=== PATIENT | female | born 1950 | race Caucasian/White ===

== ENCOUNTER → 2017-07-15 | Outpatient (CLI) | payer MEDICARE, OTHER ==
--- NOTE | 2017-07-16 10:33 | MM ---
Reason for exam: screening (asymptomatic). Last mammogram was performed 1 year and 1 month ago. History: Patient history of other cancer. Family history of breast cancer in paternal grandmother. Reductions of both breasts. Physical Findings: A clinical breast exam by your physician is recommended on an annual basis and results should be correlated with mammographic findings. MG 3D Screening Mammo W/Cad Bilateral CC, MLO, and XCCL view(s) were taken. Prior study comparison: June 18, 2016, bilateral MG 3d screening mammo w/cad. June 27, 2015, mammogram, performed at [facility]. Finding #1: There is a 8 mm equal density (isodense), oval mass in the outer quadrant of the left breast seen on XCCL view. Finding #2: There are typically benign calcifications in both breasts. ASSESSMENT: Incomplete: need additional imaging evaluation, BI-RAD 0 RECOMMENDATION: Special view mammogram of the left breast. If lesion persists on supplemental views, image directed ultrasound is recommended. [facility] will attempt to contact patient to return for supplemental views and ultrasound if indicated.
== END | disposition home or self-care (01) ==
LOC: RADMAMWWP 11:14
PROVIDERS: ATTEND Family Medicine
DX: Z12.31 Encounter for screening mammogram for malignant neoplasm of breast (principal)
CPT/HCPCS: 77063; 77067

== ENCOUNTER → 2017-07-29 | Outpatient (CLI) | payer MEDICARE, OTHER ==
--- NOTE | 2017-07-29 11:07 | MM ---
Reason for exam: additional evaluation requested from abnormal screening. Last mammogram was performed less than 1 month ago. History: Patient history of other cancer. Family history of breast cancer in paternal grandmother. Reductions of both breasts. Physical Findings: Nurse did not find any significant physical abnormalities on exam. MG 3D Work Up W/Cad LT ML and spot compression XCCL view(s) were taken of the left breast. Prior study comparison: July 15, 2017, bilateral MG 3d screening mammo w/cad. June 18, 2016, bilateral MG 3d screening mammo w/cad. Nodule persists upper outer quadrant left breast. Ultrasound recommended. 7-8cm from nipple. These results were verbally communicated with the patient and result sheet given to the patient on 07/29/17. ASSESSMENT: Incomplete: need additional imaging evaluation, BI-RAD 0 RECOMMENDATION: Ultrasound of the left breast.
--- NOTE | 2017-07-29 11:09 | USB ---
Reason for exam: additional evaluation requested from abnormal screening. History: Patient history of other cancer. Family history of breast cancer in paternal grandmother. Reductions of both breasts. US Breast Workup Limited LT Left breast ultrasound demonstrates a 0.7 x 0.3 x 0.4cm solid lesion at 4 o'clock. These results were verbally communicated with the patient and result sheet given to the patient on 07/29/17. ASSESSMENT: Suspicious, BI-RAD 4 RECOMMENDATION: Ultrasound core biopsy of the left breast. Called Dr. Padilla with mammographic findings and has scheduled an appointment for the patient for 08/06/17 at 3:[address] Kruse. PRELIMINARY REPORT CALLED AND FAXED TO DR. KRUSE ON 07/29/17.
== END | disposition home or self-care (01) ==
LOC: RADMAMWWP 07:00
PROVIDERS: ATTEND Family Medicine
DX: R92.8 Other abnormal and inconclusive findings on diagnostic imaging of breast (principal)
CPT/HCPCS: 77065; 76642; G0279

== ENCOUNTER → 2017-08-06 | Day surgery (SDC) | payer MEDICARE, OTHER ==
[2017-08-06 07:33] VITALS: RESP 16; BMI 24.4
--- NOTE | 2017-08-06 09:14 | USB ---
EXAMINATION TYPE: US biopsy breast VAD LT, MG diagnostic mammo LT wo CAD DATE OF EXAM: 08/06/2017 CLINICAL HISTORY: Breast mass N63. Abnormal ultrasound and mammogram TECHNIQUE: Ultrasound guided core biopsy of left breast with clip placement and follow-up two-view mammogram. COMPARISON: Left breast mammogram and ultrasound July 29, 2017 and older studies FINDINGS: The procedure of ultrasound guided core biopsy was explained to the patient. Benefits, alternatives, and risks were discussed. An informed consent was then obtained. The patient was placed in supine positioning for imaging and for the procedure. Preprocedure imaging redemonstrates some vague hypoechoic partially shadowing area of 4:00 position left breast zone B. The overlying skin was prepped and draped in usual sterile fashion. Lidocaine buffered with bicarbonate was used as anesthetic into the skin and subcutaneous tissue up to area of concern in the left breast. Under ultrasound guidance, a 12-gauge vacuum assisted biopsy gun device was used to obtain 3 core samples. Following this, a biopsy clip was left in lesion. The patient tolerated the procedure well without any immediate complication. The patient was kept in the radiology department for short stay after the procedure and then discharged home in stable condition. Postprocedure mammogram shows successful deployment of clip was not definitively corresponding to area of original mammogram workup which is less well-seen on today's images. Area of mammogram concern may be similar in appearance to 2014 mammogram in retrospect. IMPRESSION: Successful, uncomplicated ultrasound guided core biopsy of area of concern in the left breast, full pathology results to follow. Low to intermediate index of suspicion noted at time of procedure. Pathology Results: Benign BREAST, LEFT, CORE BIOPSY: BENIGN BREAST WITH FIBROCYSTIC CHANGES INCLUDING PROMINENT STROMAL FIBROSIS. Recommendation Follow up ultrasound of the left breast in 6 months. RITCHIED
[2017-08-06 09:50] VITALS: BP 127/75; PULSE 54; TEMP 97.9
== END ==
LOC: RADUSWWP 07:02
PROVIDERS: ATTEND Surgery
DX: N60.32 Fibrosclerosis of left breast (principal); Z88.0 Allergy status to penicillin
CPT/HCPCS: 88305; 77065; 19083; A4648; J2001

== ENCOUNTER → 2018-01-31 | Outpatient (CLI) | payer MEDICARE, OTHER ==
--- NOTE | 2018-01-31 12:08 | MM ---
Reason for exam: follow-up at short interval from prior study. Last mammogram was performed 6 months ago. History: Patient history of other cancer. Family history of breast cancer in paternal grandmother. Benign US biopsy breast VAD LT of the left breast, August 06, 2017. Reductions of both breasts. Physical Findings: Nurse did not find any significant physical abnormalities on exam. MG 3D Diag Mammo Wo Cad LT CC and MLO view(s) were taken of the left breast. Prior study comparison: August 06, 2017, left breast MG diagnostic mammo LT wo CAD. July 29, 2017, left breast MG 3d work up w/cad LT. There are scattered fibroglandular densities. Finding: There are typically benign calcifications in the left breast. Left biopsy marker noted. These results were verbally communicated with the patient and result sheet given to the patient on 01/31/18. ASSESSMENT: Negative, BI-RAD 1 RECOMMENDATION: Return to routine screening mammogram schedule for both breasts. Back on schedule.
== END | disposition home or self-care (01) ==
LOC: RADMAMWWP 10:25
PROVIDERS: ATTEND Surgery
DX: R92.8 Other abnormal and inconclusive findings on diagnostic imaging of breast (principal)
CPT/HCPCS: 77065; G0279; 77061

== ENCOUNTER → 2019-04-08 | Outpatient (CLI) | payer MEDICARE, OTHER ==
--- NOTE | 2019-04-08 13:25 | MM ---
Reason for exam: additional evaluation requested from prior study. Last mammogram was performed 1 year and 2 months ago. History: Patient history of other cancer. Family history of breast cancer in paternal grandmother at age 55. Benign US biopsy breast VAD LT of the left breast, August 06, 2017. Reductions of both breasts. Physical Findings: Nurse did not find any significant physical abnormalities on exam. MG 3D Diag Mammo W/Cad PEDRO Bilateral CC and MLO view(s) were taken. Prior study comparison: January 31, 2018, left breast MG 3d diag mammo wo cad LT. August 06, 2017, left breast MG diagnostic mammo LT wo CAD. The breast tissue is heterogeneously dense. This may lower the sensitivity of mammography. Previous mammotome biopsy in the left breast. No significant new findings when compared with previous films. These results were verbally communicated with the patient and result sheet given to the patient on 04/08/19. ASSESSMENT: Negative, BI-RAD 1 RECOMMENDATION: Routine screening mammogram of both breasts in 1 year.
== END | disposition home or self-care (01) ==
LOC: RADMAMWWP 12:41
PROVIDERS: ATTEND Family Medicine
DX: R92.8 Other abnormal and inconclusive findings on diagnostic imaging of breast (principal)
CPT/HCPCS: 77066; G0279; 77062

== ENCOUNTER → 2020-06-07 | Outpatient (CLI) | payer MEDICARE, OTHER ==
--- NOTE | 2020-06-08 13:37 | MM ---
Reason for exam: screening (asymptomatic). Last mammogram was performed 1 year and 2 months ago. History: Patient history of other cancer. Family history of breast cancer in paternal grandmother at age 55. Benign US biopsy breast VAD LT of the left breast, August 06, 2017. Reductions of both breasts. Physical Findings: A clinical breast exam by your physician is recommended on an annual basis and results should be correlated with mammographic findings. MG 3D Screening Mammo W/Cad Bilateral CC and MLO view(s) were taken. Prior study comparison: April 08, 2019, bilateral MG 3d diag mammo w/cad PEDRO. January 31, 2018, left breast MG 3d diag mammo wo cad LT. There are scattered fibroglandular densities. Previous mammotome biopsy in the left breast. No significant changes when compared with prior studies. ASSESSMENT: Negative, BI-RAD 1 RECOMMENDATION: Routine screening mammogram of both breasts in 1 year.
== END | disposition home or self-care (01) ==
LOC: RADMAMWWP 14:26
PROVIDERS: ATTEND Family Medicine
DX: Z12.31 Encounter for screening mammogram for malignant neoplasm of breast (principal)
CPT/HCPCS: 77063; 77067

== ENCOUNTER → 2021-02-08 | Outpatient (CLI) | payer MEDICARE, OTHER ==
--- NOTE | 2021-02-14 10:26 | MM ---
Reason for exam: clinical finding. Last mammogram was performed 8 months ago. History: Patient is postmenopausal and history of other cancer. Family history of breast cancer in paternal grandmother at age 55. Benign US biopsy breast VAD LT of the left breast, August 06, 2017. Reductions of both breasts. Physical Findings: Nurse did not find any significant physical abnormalities on exam. MG 3D Diag Mammo W/Cad PEDRO Bilateral CC and MLO view(s) were taken. Prior study comparison: June 07, 2020, bilateral MG 3d screening mammo w/cad. April 08, 2019, bilateral MG 3d diag mammo w/cad PEDRO. July 15, 2017, bilateral MG 3d screening mammo w/cad. The breast tissue is heterogeneously dense. This may lower the sensitivity of mammography. Previous mammotome biopsy in the left breast. There is no discrete abnormality including area of concern right axilla. These results were verbally communicated with the patient and result sheet given to the patient on 02/08/21. ASSESSMENT: Incomplete: need additional imaging evaluation, BI-RAD 0 RECOMMENDATION: Ultrasound of the right breast.
--- NOTE | 2021-02-14 10:29 | USB ---
Reason for exam: additional evaluation requested from abnormal screening. History: Patient is postmenopausal and history of other cancer. Family history of breast cancer in paternal grandmother at age 55. Benign US biopsy breast VAD LT of the left breast, August 06, 2017. Reductions of both breasts. US Breast Limited RT Right limited breast ultrasound including focal area of concern, retroareolar and axilla demonstrates no cystic or solid lesion seen. Scanned axilla palpable. No findings. Normal appearing axillary nodes with fatty ranjeet. These results were verbally communicated with the patient and result sheet given to the patient on 02/08/21. ASSESSMENT: Benign, BI-RAD 2 RECOMMENDATION: Routine screening mammogram of both breasts in 1 year. Manage on a clinical basis with regard to patient's right axillary fullness and pain.
== END | disposition home or self-care (01) ==
LOC: RADMAMWWP 07:31
PROVIDERS: ATTEND Family Medicine
DX: R92.2 Inconclusive mammogram (principal); Z78.0 Asymptomatic menopausal state; Z85.9 Personal history of malignant neoplasm, unspecified; Z80.3 Family history of malignant neoplasm of breast
CPT/HCPCS: 77066; 76642; G0279; 77062

== ENCOUNTER → 2022-02-09 | Outpatient (CLI) | payer MEDICARE, OTHER ==
--- NOTE | 2022-02-12 08:40 | MM ---
Reason for Exam: Screening (asymptomatic). Last screening mammogram was performed 12 month(s) ago. Patient History: Menarche at age 12. First Full-Term at age 19. Left ovary removed at age 70. Right ovary removed at age 70. Hysterectomy at age 35. Postmenopausal. Bilateral Reduction. 08/06/2017, Benign Core Biopsy on the left side. Paternal grandmother had breast cancer, age 55. Risk Values: Guerita 5 year model risk: 1.5%. NCI Lifetime model risk: 4.1%. Prior Study Comparison: 04/08/2019 Bilateral Diagnostic Mammogram, [facility]. 06/07/2020 Bilateral Screening Mammogram, [facility]. 02/08/2021 Bilateral Diagnostic Mammogram, [facility]. Tissue Density: There are scattered fibroglandular densities. Findings: Analyzed By CAD. There is no suspicious group of microcalcifications or new suspicious mass in either breast. Biopsy clip in the left breast. No significant change from prior exams. Overall Assessment: Benign, BI-RAD 2 Management: Screening Mammogram of both breasts in 1 year. A clinical breast exam by your physician is recommended on an annual basis and results should be correlated with mammographic findings. Electronically signed and approved by: Channing Zuniga D.O.
== END | disposition home or self-care (01) ==
LOC: RADMAMWWP 16:25
PROVIDERS: ATTEND Family Medicine
DX: Z12.31 Encounter for screening mammogram for malignant neoplasm of breast (principal); Z78.0 Asymptomatic menopausal state; Z80.3 Family history of malignant neoplasm of breast
CPT/HCPCS: 77063; 77067

== ENCOUNTER → 2023-02-26 | Outpatient (CLI) | payer MEDICARE, OTHER ==
--- NOTE | 2023-02-27 15:26 | MM ---
Reason for Exam: Screening (asymptomatic). Last screening mammogram was performed 12 month(s) ago. Patient History: Menarche at age 12. First Full-Term at age 19. Left ovary removed at age 70. Right ovary removed at age 70. Hysterectomy at age 35. Postmenopausal. Bilateral Reduction. 08/06/2017, Benign Core Biopsy on the left side. Paternal grandmother had breast cancer, age 55. Risk Values: Guerita 5 year model risk: 1.5%. NCI Lifetime model risk: 3.9%. Prior Study Comparison: 06/07/2020 Bilateral Screening Mammogram, [facility]. 02/08/2021 Bilateral Diagnostic Mammogram, [facility]. 02/09/2022 Bilateral MG 3D screening mammo w/cad, [facility]. Tissue Density: The breast tissue is heterogeneously dense. This may lower the sensitivity of mammography. Findings: Analyzed By CAD. Pattern appears symmetrical and stable. Benign calcification is present within the left breast. A core marker is within the left breast. No suspicious groups of microcalcifications, spiculated or lobular masses, architectural distortion or other secondary signs of malignancy are mammographically apparent. Overall Assessment: Benign, BI-RAD 2 Management: Screening Mammogram of both breasts in 1 year. A negative mammogram report should not preclude additional follow up of suspicious palpable abnormalities. Patient should continue monthly self breast exam. A clinical breast exam by your physician is recommended on an annual basis and results should be correlated with mammographic findings. Electronically signed and approved by: Alex Uriostegui D.O. Radiologis
== END | disposition home or self-care (01) ==
LOC: RADMAMWWP 06:51
PROVIDERS: ATTEND Family Medicine
DX: Z12.31 Encounter for screening mammogram for malignant neoplasm of breast (principal); Z78.0 Asymptomatic menopausal state; Z80.3 Family history of malignant neoplasm of breast
CPT/HCPCS: 77063; 77067

== ENCOUNTER → 2024-02-28 | Outpatient (CLI) | payer MEDICARE, OTHER ==
[~2024-02-28] MED LIST: DENOSUMAB 60 MG/ML 1 ML SYRINGE SQ ONE
== END ==
LOC: PROCWHC3 13:30
PROVIDERS: ATTEND Family Medicine
DX: M81.0 Age-related osteoporosis without current pathological fracture (principal)
CPT/HCPCS: 96372

== ENCOUNTER → 2024-07-28 | Outpatient (CLI) | payer MEDICARE, OTHER ==
--- NOTE | 2024-07-28 15:28 | MM ---
Reason for Exam: Screening (asymptomatic). Last mammogram was performed 1 year(s) and 5 month(s) ago. Patient History: Menarche at age 12. First Full-Term at age 19. Left ovary removed at age 70. Right ovary removed at age 70. Hysterectomy at age 35. Postmenopausal. Bilateral Reduction. 08/06/2017, Benign Core Biopsy on the left side. Paternal grandmother had breast cancer, age 55. Risk Values: Guerita 5 year model risk: 1.5%. NCI Lifetime model risk: 3.7%. Prior Study Comparison: 02/08/2021 Bilateral Diagnostic Mammogram, [facility]. 02/09/2022 Bilateral MG 3D screening mammo w/cad, [facility]. 02/26/2023 Bilateral MG 3D screening mammo w/cad, [facility]. Tissue Density: There are scattered areas of fibroglandular density. Findings: Analyzed By CAD. Subareolar asymmetric densities on the bilateral MLO views remain unchanged. Microclip left breast from prior biopsy. There is no suspicious group of microcalcifications or new suspicious mass in either breast. Overall Assessment: Benign, BI-RAD 2 Management: Screening Mammogram of both breasts in 1 year. Patient should continue monthly self-breast exams. A clinical breast exam by your physician is recommended on an annual basis. This exam should not preclude additional follow-up of suspicious palpable abnormalities. Note on Guerita scores and lifetime risk: 1. A Guerita score greater than 3% is considered moderate risk. If this is the case, consider specialist referral to assess eligibility for a risk reducing agent. 2. If overall lifetime risk for the development of breast cancer is 20% or higher, the patient may qualify for future screening with alternating mammogram and breast MRI. [facility], , 07/28/2024 3:26 PM. Electronically signed and approved by: Reinaldo Moreno M.D. Radiologist
== END | disposition home or self-care (01) ==
LOC: RADMAMWWP 13:17
PROVIDERS: ATTEND Family Medicine
DX: Z12.31 Encounter for screening mammogram for malignant neoplasm of breast (principal); Z80.3 Family history of malignant neoplasm of breast; Z90.722 Acquired absence of ovaries, bilateral; Z78.0 Asymptomatic menopausal state; R92.323 Mammographic fibroglandular density, bilateral breasts; Z98.82 Breast implant status
CPT/HCPCS: 77063; 77067

== ENCOUNTER 2024-10-07 13:03 | Outpatient (CLI) | payer MEDICARE, OTHER ==
[2024-10-07] MEDS: DENOSUMAB 60 MG/ML 1 ML SYRINGE SQ NR (13:45)
[2024-10-07 13:48] VITALS: BP 110/58; PULSE 66; RESP 16; TEMP 97.8
== END 2024-10-08 07:52 | disposition home or self-care (01) ==
LOC: PROCWHC3 13:03
PROVIDERS: ATTEND Family Medicine
DX: M81.0 Age-related osteoporosis without current pathological fracture (principal)
CPT/HCPCS: 96372; J0897